=== PATIENT | male | born 2000 ===

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

== ENCOUNTER 2023-07-26 12:46 | Outpatient (AMB) | payer OTHER, BC, SELFPAY ==
[2023-07-26 12:52] VITALS: BP 122/74; PULSE 97; RESP 13; TEMP 36.8; O2SAT 99; BMI 20.4
--- NOTE | 2023-07-26 12:52 | MHC.PC.OV ---
Vital Signs 07/26/23 12:52 Height 5 ft 10 in Weight 142 lb 6 oz BMI 20.4 BP 122/74 Blood Pressure Location Rt brachial Position Sitting Respiration 13 Pulse 97 Pulse Source Pulse Oximeter Temp 98.2 F Temp Source Temporal Artery Scan Pulse Oximetry (%) 99 Oxygen Delivery Method Room Air Intake Visit Reasons: worker comp 06/28 [facility] Intake Note: Patient was seen for a incident at work that caused an injury to wrist neck and lower back. Patient states that wrist feels fine now but his neck and lower back is still giving him a had time. 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 He brought forms to be filled out by his provider. He reports work related injury for which he was evaluated at [facility] ED on 06/28/2023. He noted that the injury occurred when trying to catch something and lifts something He presented with reports of right wrist pain, neck pain, and right-sided lower back pain. X-ray of the right wrist was negative for fracture or dislocation. Ganglion cyst was suspected to the right wrist. He was discharged home with instructions to take Tylenol or ibuprofen He notes that that pain in his right wrist has resolved. However, he continues to experience persistent soreness to his posterior neck and intermittent pain shooting pain to the middle of his lower back. His symptoms have been ongoing for the past 1 month. No tingling, numbness, or loss of sensation. He notes that he slipped while working and landed on his knees. 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 [facility] Medical History No pertinent past medical history Surgical History No pertinent past surgical history Social History Household Members: Family Housing: House Alcohol intake: never Patient Tobacco Use Status: Never used Tobacco e-Cigarette/Vaping Use: Never Used Second Hand Smoke Exposure: No service: Yes Current occupational status: employed Current occupation: [employer] Current occupational exposures/hazards: No Cognitive needs: No Hearing needs: No Vision needs: No Questionnaire BRIAN-7 AMB Questionnaire BRIAN-7 Date BRIAN - 7 assessed: 03/12/22 Source: Developed by Drs. Nathaniel Puri, Latisha Blackwood, Cong Reyna and colleagues, with an educational tania from [employer]. Review of Systems Const Details: Const Denies chills, Denies fatigue, Denies fever(s), Denies headache(s) and Denies weakness ENT Denies dizziness and Denies headache(s) Card Denies chest pain, Denies lightheadedness, Denies dyspnea and Denies other (Palpitations) Resp Denies cough, Denies dyspnea, Denies wheezing and Denies other ( shortness of breath) GI Denies abdominal pain, Denies melena, Denies hematochezia, Denies change in bowel habits, Denies dyspepsia and Denies nausea Denies hematuria and Denies dysuria Musc Reports as per HPI Skin/Breast Denies rash, Denies unusual bruising and Denies wounds Neuro Denies abnormal gait, Denies dizziness, Denies headache(s), Denies memory loss, Denies numbness, Denies Sensory deficit (Neuro), Denies tingling and Denies weakness Psych Denies anxiety, Denies depression, Denies memory loss Endo Denies cold intolerance, Denies fatigue, Denies heat intolerance, Denies polydipsia and Denies polyuria Aller/Immun Denies wheezing Physical exam (Primary Care) Vital Signs: Last Vital Signs Temp 98.2 F 07/26/23 12:52 Pulse 97 07/26/23 12:52 Resp 13 07/26/23 12:52 BP 122/74 07/26/23 12:52 Pulse Ox 99 07/26/23 12:52 Oxygen Delivery Method Room Air 07/26/23 12:52 BMI result Body Mass Index 20.4 Tobacco/Smoking Status: Tobacco use Status Tobacco use date assessed 07/26/23 07/26/23 13:04 Patient Tobacco Use Status Never used Tobacco 07/26/23 13:04 e-Cigarette/Vaping Use Never Used 07/26/23 13:04 Const Other: General: no acute distress and well developed Nutritional Appearance: well nourished Orientation/consciousness: patient oriented x3 HENMT Head: Yes normocephalic and Yes atraumatic Eyes General: appearance normal, both eyes and all related structures Pupils: Equal, round and reactive pupils present EOM: EOMs intact bilaterally Resp Effort & Inspection: normal respiratory effort Auscultation: clear to auscultation bilaterally Cardio Rate: regular rate Rhythm: regular rhythm Heart sounds: S1 normal heart sound present, S2 normal heart sound present, no gallops, no murmurs and no rubs GI Palpation (GI): No Abdominal aortic bruit present, Soft to palpation, nontender, No hepatosplenomegaly present and No Rebound tenderness present Auscultation: normal bowel sounds General: Yes no CVA tenderness Back/Spine/Pelvis Back: no CVA tenderness Cervical Spine: cervical ROM normal and No Cervical spine tenderness Thoracic/Lumbar Spine: thoraco-lumbar ROM normal, No pain with thoraco-lumbar ROM, No thoracic spinal tenderness and No lumbar spinal tenderness Extrem General: Yes normal to inspection, No edema and No calf tenderness Skin General: warm and dry. Normal skin color. Normal skin turgor Neuro General: patient oriented x3, gait normal and no focal neuro deficit Cranial nerves: Yes Equal, round and reactive pupils present Cognition (Neuro): normal cognition Gait exam (Neuro): Normal gait present Sensory Exam: No Sensory deficit (Neuro) Psych Appearance: grossly normal Affect: normal affect Attitude: cooperative Thought process: Normal thought process present Assessment and Plan Assessment & Plan (1) Neck pain: Code(s): M54.2 - Cervicalgia Plan: No tenderness to palpation. No overt signs of trauma or injury noted. Normal range of motion Likely muscular pain Naproxen ordered. Take as prescribed Warm/cold compresses encouraged X-ray ordered Referred to physical therapy Informed that most nontraumatic musculoskeletal symptoms take 6 weeks to resolve He is given additional 2 weeks of light duty for employment Follow-up with PCP or return with worsening or new symptoms Verbalized understanding and agreed with treatment plan (2) Low back pain: Code(s): M54.50 - Low back pain, unspecified Qualifiers: Back pain laterality: midline Chronicity: acute Sciatica presence: without sciatica Qualified Code(s): M54.50 - Low back pain, unspecified Plan: No tenderness to palpation of the spine X-ray of the lumbar spine ordered Treatment as above Orders: Orders XR soft tissue neck 07/26/23 M54.2 - Cervicalgia PT Evaluation and Treatment 07/26/23 M54.2 - Cervicalgia, M54.50 - Low back pain, unspecified XR lumbar spine 2-3V 07/26/23 M54.50 - Low back pain, unspecified Medications: New naproxen 500 mg PO BID PRN 60 tabs 0RF pain Coding Level of Care Code Est Pt Level 3 (83572) Diagnoses Neck pain M54.2 Acute midline low back pain without sciatica M54.50 Back pain laterality: midline Chronicity: acute Sciatica presence: without sciatica
== END 2023-07-26 13:42 | disposition home or self-care (01) ==
PROVIDERS: PCP Family Medicine; Visit Provider Nurse Practitioner Family
DX: M54.2 Cervicalgia (principal); M54.50 Low back pain, unspecified
CPT/HCPCS: 99213

== ENCOUNTER 2023-11-25 09:41 | Outpatient (AMB) | payer BC, SELFPAY ==
--- NOTE | 2023-11-25 09:50 | A.OFFPC_ITS ---
Vital Signs 11/25/23 09:58 Height 5 ft 10 in Weight 144 lb BMI 20.7 BP 112/66 Blood Pressure Location Rt brachial Position Sitting Respiration 16 Pulse 102 H Pulse Source Pulse Oximeter Temp 98.9 F Temp Source Oral Pulse Oximetry (%) 97 Oxygen Delivery Method Room Air Intake Visit Reasons: Remove Ear flush Intake Note: bilateral impacted cerumen. Has been using debrox for a week or two to help clear the ears. 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 Used Debrox bilat. TM intact and clear on the left, EAC clear on the left. Right EAC with cerumen successfully cleared. EAC clear status post treatment. TM intact and clear. Patient reports resolution of his symptoms. [facility] Medical History No pertinent past medical history Surgical History No pertinent past surgical history Social History Household Members: Family Housing: House Alcohol intake: never Patient Tobacco Use Status: Never used Tobacco e-Cigarette/Vaping Use: Never Used Second Hand Smoke Exposure: No service: Yes Current occupational status: employed Current occupation: [employer] Current occupational exposures/hazards: No Cognitive needs: No Hearing needs: No Vision needs: No Questionnaire BRIAN-7 AMB Questionnaire BRIAN-7 Date BRIAN - 7 assessed: 03/12/22 Source: Developed by Drs. Nathaniel Puri, Latisha Blackwood, Cong Reyna and colleagues, with an educational tania from [employer]. Physical exam (Primary Care) Vital Signs: Last Vital Signs Temp 98.9 F 11/25/23 09:58 Pulse 102 H 11/25/23 09:58 Resp 16 11/25/23 09:58 BP 112/66 11/25/23 09:58 Pulse Ox 97 11/25/23 09:58 Oxygen Delivery Method Room Air 11/25/23 09:58 BMI result Body Mass Index 20.7 Tobacco/Smoking Status: Tobacco use Status Tobacco use date assessed 11/25/23 11/25/23 09:54 Patient Tobacco Use Status Never used Tobacco 11/25/23 09:54 e-Cigarette/Vaping Use Never Used 11/25/23 09:54 Office Procedures Cerumen Removal From which ear canal was the cerumen removed: right Removal: irrigation and cerumen loop/spoon Notes: patient tolerated procedure well, no complications and ear canal clear [id number] Wax Removal by Spoon/Curette Assessment and Plan Assessment & Plan (1) Impacted cerumen, right ear: Code(s): H61.21 - Impacted cerumen, right ear Patient Instructions: Earwax (Cerumen Impaction) Created in Ears Earwax, called cerumen, is produced by special wax-forming glands located in the skin of the outer one-third of the ear canal. It is normal to have cerumen in ear canal as this waxy substance serves as a self-cleaning agent with protective, lubricating, and antibacterial properties. The absence of earwax may result in dry, itchy ears. Self-cleaning means there is a slow and bonding agent movement of earwax and skin cells from the eardrum to the ear opening. Old earwax is constantly being transported, assisted by chewing and jaw motion, from the ear canal to the ear opening where, most of the time, it dries, flakes, and falls out. What Are the Symptoms of an Earwax Blockage? Symptoms of an earwax problem may include: Earache Feeling of plugged hearing or fullness in the ear Partial hearing loss that gets worse Tinnitus, ringing, or noises in the ear Itching, odor, or discharge Coughing Pain Infection What Causes Earwax Blockage? When a patient has wax blockage against the eardrum, it is often because they have been probing the ear with such things as cotton-tipped swabs, gissel pins, or twisted napkin corners. These objects only push the wax in deeper in the ear canal. Why Is It Dangerous to Use Swabs to Remove Earwax? Wax blockage is one of the most common causes of hearing loss. This is often caused by attempts to clean the ear with cotton swabs. Most cleaning attempts merely push the wax deeper into the ear canal which is shaped like an hourglass, causing a blockage at the narrowing part of the ear canal. In addition, accidental trauma to the ear drum or ear bones can occur if the swab is pushed too deep. Good intentions to keep ears clean may lessen the ability to hear. The ear is a delicate and complicated body part, including the skin of the ear canal and the eardrum. Therefore, special care should be given to this part of the body. Discontinue the habit of inserting cotton-tipped swabs or other objects into the ear canals. What Are the Treatment Options? Cleaning a working ear can be done by washing it with a soft cloth, but do not insert anything into the ear. Ideally, the ear canals should never have to be cleaned. However, that isn?t always the case. The ears should be cleaned when enough earwax gathers to cause symptoms or to prevent a needed assessment of the ear by your doctor. This condition is call cerumen impaction. Most cases of ear wax blockage respond to home treatments used to soften wax. Patients can try placing a few drops of mineral oil, baby oil, glycerin, or commercial drops in the ear. Detergent drops such as hydrogen peroxide or carbamide peroxide (available in most pharmacies) may also aid in the removal of wax. Irrigation or ear syringing is commonly used for cleaning and can be performed by a physician or at home using a commercially available irrigation kit. Common solutions used for syringing include water and saline, which should be warmed to body temperature to prevent dizziness. Ear syringing is most effective when water, saline, or wax dissolving drops are put in the ear canal 15 to 30 minutes before treatment. Caution is advised to avoid having your ears irrigated if you have diabetes, a hole in the eardrum (perforation), tube in the eardrum, skin problems such as eczema in the ear canal or a weakened immune system. >> If you have been prescribed Debrox, use as directed for 5 nights and return to the office on Day 6 for an ear lavage to remove the wax<< Manual removal of earwax is also effective. This is most often performed by an ENT (ear, nose, and throat) specialist, or orthopedic coder, using suction or special miniature instruments, and a microscope to magnify the ear canal. Manual removal is preferred if your ear canal is narrow, the eardrum has a perforation or tube, other methods have failed, or if you have skin problems affecting the ear canal, diabetes or a weakened immune system. When Should I Talk to a Doctor? If home treatments do not help, or if wax has accumulated so much that it blocks your ear canal and your ability to hear, an ENT specialist may prescribe eardrops designed to soften wax, or they may wash or vacuum it out. Your ENT sp ecialist may also need to remove the wax under microscopic visualization. If there is a possibility of a perforation in the eardrum, consult a physician prior to trying any [id number] remedies. Putting eardrops or other products in the ear with the presence of an eardrum perforation may cause pain or an infection. Washing water through such a hole could start an infection. If you are prone to repeated wax impaction or use hearing aids, consider seeing your doctor every six to 12 months for a checkup and routine preventive cleaning. What Questions Should I Ask My Doctor? What are the benefits and risks/side effects of different cerumen removal management options: earwax softening products, water irrigation vs. physical removal? Does cerumen accumulation vary with age, gender, familial or dietary intake? How do I manage swimming underwater with cerumen impaction? Should anything be done to the ears to prevent a buildup of earwax? How often should cerumen be removed from the ears? Are ear candles a safe option for removing earwax? Coding Level of Care Code Procedure Only Diagnoses Impacted cerumen, right ear H61.21 CPT Codes Office Procedure - CPT: 64011-Kxq Wax Removal by Spoon/Curette ([id number])
[2023-11-25 09:58] VITALS: BP 112/66; PULSE 102; RESP 16; TEMP 37.2; O2SAT 97; BMI 20.7
== END 2023-11-25 10:30 | disposition home or self-care (01) ==
PROVIDERS: PCP Family Medicine; Visit Provider Nurse Practitioner Family
DX: H61.21 Impacted cerumen, right ear (principal)
CPT/HCPCS: 69210